=== PATIENT | male | born 1965 | race Caucasian/White ===

== ENCOUNTER → 2016-07-24 | Outpatient (CLI) | payer BC, MEDICARE ==
[~2016-07-24] MED LIST: AMOXICILLIN PO; ANAPROX DS PO; ATORVASTATIN CA10 MG PO; EC-NAPROSYN500 MG PO; FLEXERIL PO; FLEXERIL10 M1 PO; LOMOTIL TABLET1 TAB PO; LORTAB 10/500 T1 TAB PO; LORTAB 2.5/5001 TAB PO; LORTAB 5/500 TA1 TA1 PO; MOBIC15 MG PO; MUCINEX DM1 TAB.SR . PO; NAPROXEN PO; NO MEDICATIONS; NORCO 10-325 TA1 TAB PO; PRILOSEC20 M1 PO; PRINIVIL20 M1 PO; ROBAXIN500 MG PO; TYLENOL #3 PO; TYLOX 5/500 CAP1 CAP PO; ZITHROMAX PO; [UNRECOGNIZED DRUG - REMARK]
--- NOTE | ~2016-07-24 | US116 ---
[facility] A Service of [facility] RADIOLOGY TEXT RESULTS PATIENT: RAMIRO GLYNN LOCATION: [facility] : 67 UNIT #: [id number] AGE: [address]: AUDRA JOSE APRN SEX: M ORDER DR: [id number] [facility] [address] [place]. [place], [place] [address] [id number] O MR#: [id number] Acc #: [id number] NAME: RAMIRO GLYNN : 1965 SEX: M STUDY DATE/TIME: 07/24/2016 15:08 UNIT: [facility] ROOM: STUDY DESCRIPTION: US Soft Tissue Head/Neck Attending Physician: Audra Jose Aprn Referring Physician: Audra Jose Aprn Ordering Physician: Audra Jose Aprn Primary Care Physician: Nishant Lynn M.D. MEDICAL IMAGING REPORT This report is preliminary unless electronic signature is present EXAM Targeted soft tissue ultrasound of the neck. 07/24/2016 HISTORY Enlarged lymph node behind the right ear. Palpable abnormality present for 2 days. Tenderness and increasing in size over 2 days. COMPARISON None. FINDINGS Targeted soft tissue ultrasound was performed of the patient's palpable abnormality. A 4.2 x 1.2 x 5.6 mm hypoechoic lesion is seen within the right retroauricular soft tissues at the site of patient's palpable complaint. Demonstrates no internal vascularity on color Doppler imaging. It is nonspecific but could represent a mildly prominent lymph node. However, it does not appear pathologically enlarged. Similar-appearing findings are also seen in the left retroauricular region which was performed for comparison purposes. IMPRESSION 5-6 mm long axis nodule thought to represent a lymph node is seen in the soft tissues posterior to the right ear at the patient's site of palpable complaint. It does not appear pathologic sonographically, appears relatively similar or symmetric to the lymph nodes posterior to the left ear (left retroauricular imaging performed for comparison purposes). Dictated by... Marilin Bustamante M.D. THIS IS AN ELECTRONICALLY VERIFIED REPORT Marilin Bustamante M.D. at 07/25/2016 10:00 AM [facility]/alex [facility]. [facility] A Service of [facility] RADIOLOGY TEXT RESULTS PATIENT: RAMIRO GLYNN LOCATION: [facility] #: [id number] : 67 UNIT #: [id number] AGE: [address]: AUDRA JOSE APRN SEX: M ORDER DR: TD: 07/25/2016 06:04 JOB #: [id number] MEDICAL IMAGING REPORT COPY
== END | disposition home or self-care (01) ==
LOC: CGUS 14:21
DX: R59.9 Enlarged lymph nodes, unspecified (principal)
CPT/HCPCS: 76536

== ENCOUNTER → 2016-08-15 | Day surgery (SDC) | payer OTHER ==
--- NOTE | ~2016-08-15 | OR ---
Unit #: [id number] #: [id number] Patient: RAMIRO GLYNN [id number] [address] [place], [place] [address] [id number] O MR#: [id number] NAME: RAMIRO GLYNN ROOM: Date of Procedure: 08/15/2016 Admission Date: 08/15/2016 Surgeon: Paulino French M.D. : 1965 Attending Physician: Paulino French M.D. Primary Care Physician: Nishant Lynn M.D. OPERATIVE REPORT PREOPERATIVE DIAGNOSIS Mid abdominal pain. POSTOPERATIVE DIAGNOSIS Mid abdominal pain. PROCEDURES PERFORMED 1. Esophagogastroduodenoscopy. 2. Biopsy of antrum for Helicobacter pylori testing. ANESTHESIA Monitored anesthesia care. FINDINGS The patient was found to have mild gastritis. A biopsy was obtained for Helicobacter pylori testing. SPECIMENS Sent to pathology. COMPLICATIONS None apparent. CONDITION The patient tolerated the procedure well. INDICATIONS FOR PROCEDURE The patient is a 51-year-old white male, who presents at this time with mid abdominal pain. His last colonoscopy was a year ago and had finding of only very small polyp. He presents at this time for evaluation by upper endoscopy. His recent ultrasound of the gallbladder was normal as was a HIDA CCK study. DESCRIPTION OF PROCEDURE After obtaining informed consent, the patient was brought to endoscopy suite and after adequate monitored anesthesia care, had the endoscope placed through the mouth into the upper esophagus under direct vision. It was advanced to the second portion of the duodenum without difficulty with the lumen always in view. The duodenum was normal as was the duodenal bulb. The pylorus opened normally. There was some mild distal gastritis present and a biopsy was obtained for Helicobacter pylori testing. On retroflexion back to the GE junction, the patient was found to have no Unit #: [id number] #: [id number] Patient: RAMIRO GLYNN abnormality found in the proximal third, middle third, or incisura. On pulling back above the GE junction, there was no stenosis, stricture, or neoplasm seen. The remaining portion of the esophagus was within normal limits. Laryngeal structures were grossly normal as viewed from above. The patient went from the endoscopy suite to the recovery area in stable condition. RECOMMENDATIONS Gastroesophageal reflux sheet given. Call on Saturday for pathology. Dictated by... Laila Lebron/abron TD: 08/16/2016 02:22 JOB #: [id number] [facility] OPERATIVE REPORT Page 1 of 1 X Paulino French MD PROCEDURE OPERATIVE NOTE
== END | disposition home or self-care (01) ==
LOC: COPS 12:02
DX: K29.70 Gastritis, unspecified, without bleeding (principal); I10 Essential (primary) hypertension; M54.9 Dorsalgia, unspecified; K21.9 Gastro-esophageal reflux disease without esophagitis; F17.210 Nicotine dependence, cigarettes, uncomplicated; Z88.6 Allergy status to analgesic agent; Z88.8 Allergy status to other drugs, medicaments and biological substances; Z79.891 Long term (current) use of opiate analgesic; Z79.899 Other long term (current) drug therapy; Z98.890 Other specified postprocedural states
CPT/HCPCS: 87077